=== PATIENT | male | born 1985 | race Caucasian/White ===

== ENCOUNTER 2024-01-04 17:54 | Inpatient (IN) | payer SELFPAY ==
[~2024-01-04] VITALS: Ht 185.4 cm; Wt 104.3 kg
[2024-01-04] MEDS ORDERED: METH-817 PO (18:08)
[2024-01-04 18:31] LABS: DIFFERENTIAL COMMENT 0; HEMOGLOBIN 16.3 g/dL (12.5-16.3); MEAN CORPUSCULAR VOLUME 93.9 fL (73.0-96.2)
[2024-01-04] MEDS ORDERED: IOHEXOL 350 100 ML INFUS..BTL ONE (18:31)
[2024-01-04] MEDS ORDERED: IV NORMAL SALINE 250 ML IV ONE (18:31)
[2024-01-04] MEDS ORDERED: SWABABLE VALVE TRANSFER SET EA MC ONE (18:31)
[2024-01-04 18:35] LABS: BASOPHILS # (AUTO) 0.4 K/UL (0.0-0.2); EOSINOPHILS # (AUTO) 0.2 K/uL (0.0-0.7); HEMATOCRIT 48.8 % (36.7-47.1); LYMPHOCYTES # (AUTO) 2.3 K/uL (0.8-4.8); LYMPHOCYTES % (AUTO) 24.9 % (20.5-51.5); MEAN CORPUSCULAR HEMOGLOBIN 31.4 uug (23.8-33.4); MEAN CORPUSCULAR HGB CONC 34 g/dL (32.5-36.3); MONOCYTES # (AUTO) 0.5 K/uL (0.1-1.30); MONOCYTES % (AUTO) 5.3 % (0.0-11.0); NEUTROPHILS # (AUTO) 5.8 K/uL (1.8-8.9); NEUTROPHILS % (AUTO) 63.8 % (38.5-71.5); PLATELET COUNT (AUTO) 126 K/uL (152-348); WHITE BLOOD COUNT (AUTO) 9.1 K/uL (3.6-10.2)
[2024-01-04 18:45] LABS: CALCIUM 8.7 mg/dL (8.5-10.1); CARBON DIOXIDE 32 mmol/L (21-32); CHLORIDE 100 mmol/L (98-107); CREATININE 0.6 mg/dL (0.6-1.3); GLUCOSE 136 mg/dL (74-106); POTASSIUM 3.7 mmol/L (3.5-5.1); SODIUM SERUM 140 mmol/L (136-145); UREA NITROGEN, BLOOD 13 mg/dL (7-18)
[2024-01-04 18:46] LABS: ABG BASE EXCESS 3.4 mmol/L (-2.0-3.0); ABG HCO3 28.5 mmol/L (21.0-28.0); ABG PCO2 44.9 mmHg (35.0-48.0); ABG PH 7.421 (7.350-7.450); ABG PO2 75.2 mmHg (83.0-108.0); ABG SITE LEFT RADIAL; ABG TOTAL HEMOGLOBIN 16.4 G/dL (13.5-17.5); AaDO2 95.3 mmHg; COHb 1.5 % (0.5-1.5); MetHb 0.3 % (0.0-1.5); O2Hb 93.4 % (94.0-98.0)
[2024-01-04 18:58] LABS: NT-PRO BNP 52 pg/mL (0-125)
[2024-01-04 21:13] LABS: BILIRUBIN,DIRECT 0.4 mg/dL (0.0-0.2); BILIRUBIN,TOTAL 0.9 mg/dL (0.2-1.0)
[2024-01-04 21:58] LABS: *AMPHETAMINE, URINE NEGATIVE (NEGATIVE); *BARBITURATE, URINE NEGATIVE (NEGATIVE); *BENZODIAZEPINE, URINE NEGATIVE (NEGATIVE); *CANNABINOID, URINE NEGATIVE (NEGATIVE); *COCCAINE, URINE NEGATIVE (NEGATIVE); *OPIATE, URINE NEGATIVE (NEGATIVE); *PHENCYCLIDINE SCREEN,URINE NEGATIVE (NEGATIVE); FENTANYL, URINE NEGATIVE (NEGATIVE)
[2024-01-04] MEDS ORDERED: ACETAMINOPHEN 325 MG TABLET PO PRN (22:15)
[2024-01-04] MEDS ORDERED: REMEDY ESSENTIAL ZINC PASTE 113 GM TP PRN (22:15)
[2024-01-04] MEDS ORDERED: MAGNESIUM HYDROXIDE 30 ML LIQUID UDC PO PRN (22:15)
[2024-01-04] MEDS: LORAZEPAM 2 MG/1 ML VIAL IV PRN (22:51)
[2024-01-04 23:05] VITALS: BP 151/95; TEMP 98.2; O2SAT 94
[2024-01-05] MEDS: IV NS 1000 ML 1,000 ML IV PRN (00:31)
[2024-01-05 04:54] VITALS: BP 151/92; TEMP 98.1; O2SAT 92
[2024-01-05] MEDS ORDERED: ONDANSETRON 4 MG/2 ML VIAL IV PRN (05:15)
[2024-01-05] MEDS: ONDANSETRON 4 MG/2 ML VIAL IV PRN (05:18)
[2024-01-05 06:18] LABS: BASOPHILS % (AUTO) 0.5 % (0.0-2.0); EOSINOPHILS # (AUTO) 0.1 K/uL (0.0-0.7); EOSINOPHILS % (AUTO) 1.2 % (0.0-7.0); HEMATOCRIT 45.8 % (36.7-47.1); HEMOGLOBIN 15.2 g/dL (12.5-16.3); LYMPHOCYTES # (AUTO) 2.3 K/uL (0.8-4.8); LYMPHOCYTES % (AUTO) 35.8 % (20.5-51.5); MEAN CORPUSCULAR HEMOGLOBIN 31.2 uug (23.8-33.4); MEAN CORPUSCULAR HGB CONC 33 g/dL (32.5-36.3); MONOCYTES # (AUTO) 0.6 K/uL (0.1-1.30); MONOCYTES % (AUTO) 9.5 % (0.0-11.0); NEUTROPHILS # (AUTO) 3.4 K/uL (1.8-8.9); PLATELET COUNT (AUTO) 84 K/uL (152-348); RED BLOOD CELL COUNT(AUTO) 4.87 MIL/uL (4.06-5.63); RED CELL DISTRIBUTION WIDTH 14.2 % (12.1-16.2); WHITE BLOOD COUNT (AUTO) 6.3 K/uL (3.6-10.2)
[2024-01-05] MEDS: PANTOPRAZOLE SODIUM 40 MG TABLET.DR PO SCH (06:19)
[2024-01-05 06:45] LABS: CREATININE 0.7 mg/dL (0.6-1.3); MAGNESIUM 1.2 mg/dL (1.8-2.4); PHOSPHOROUS 4.3 mg/dL (2.5-4.9); POTASSIUM 3.7 mmol/L (3.5-5.1)
[2024-01-05 06:57] LABS: DIFFERENTIAL COMMENT 1
[2024-01-05 08:00] VITALS: BP 156/94; TEMP 98.6; O2SAT 96
[2024-01-05 08:44] LABS: EOSINOPHILS % (MANUAL) 1 % (0-8); LYMPHOCYTES % (MANUAL) 36 % (20-40); MONOCYTES % (MANUAL) 10 % (2-10); NEUTROPHILS % (MANUAL) 53 % (42-75); PLATELET ESTIMATE DECREASED
[2024-01-05] MEDS: LORAZEPAM 2 MG/1 ML VIAL IV ONE (10:24)
[2024-01-05] MEDS: MAGNESIUM OXIDE 400 MG TABLET PO SCH (11:08)
[2024-01-05 12:00] VITALS: BP 164/89; TEMP 98.4; O2SAT 95
[2024-01-05] MEDS: CHLORDIAZEPOXIDE HCL 25 MG CAPSULE PO SCH (12:31)
[2024-01-05] MEDS: METHADONE ORAL CONCENTRATE SOL 10 MG/ML ORAL.CONC PO SCH (13:30)
[2024-01-05 17:53] VITALS: O2SAT 96
[2024-01-05] MEDS: LORAZEPAM 2 MG/1 ML VIAL IM PRN (18:30)
[2024-01-05 20:11] VITALS: O2SAT 96
[2024-01-05 20:14] VITALS: BP 153/94; TEMP 98.2; O2SAT 97
[2024-01-06] VITALS (8 sets, daily range): BP systolic 131–170; BP diastolic 92–116; TEMP 98.1–98.8; O2SAT 93–96
[2024-01-06 06:58] LABS: BASOPHILS % (AUTO) 0.5 % (0.0-2.0); EOSINOPHILS # (AUTO) 0.1 K/uL (0.0-0.7); EOSINOPHILS % (AUTO) 1.9 % (0.0-7.0); HEMATOCRIT 42.7 % (36.7-47.1); HEMOGLOBIN 14.4 g/dL (12.5-16.3); LYMPHOCYTES # (AUTO) 1.1 K/uL (0.8-4.8); LYMPHOCYTES % (AUTO) 26.6 % (20.5-51.5); MEAN CORPUSCULAR HEMOGLOBIN 31.4 uug (23.8-33.4); MEAN CORPUSCULAR HGB CONC 34 g/dL (32.5-36.3); MEAN CORPUSCULAR VOLUME 93.1 fL (73.0-96.2); MONOCYTES # (AUTO) 0.4 K/uL (0.1-1.30); MONOCYTES % (AUTO) 9.2 % (0.0-11.0); NEUTROPHILS # (AUTO) 2.6 K/uL (1.8-8.9); NEUTROPHILS % (AUTO) 61.8 % (38.5-71.5); PLATELET COUNT (AUTO) 50 K/uL (152-348); RED BLOOD CELL COUNT(AUTO) 4.59 MIL/uL (4.06-5.63); RED CELL DISTRIBUTION WIDTH 13.8 % (12.1-16.2); WHITE BLOOD COUNT (AUTO) 4.2 K/uL (3.6-10.2)
[2024-01-06 07:13] LABS: DIFFERENTIAL COMMENT 1
[2024-01-06 07:40] LABS: CALCIUM 8.4 mg/dL (8.5-10.1); CARBON DIOXIDE 32 mmol/L (21-32); CHLORIDE 100 mmol/L (98-107); CREATININE 0.6 mg/dL (0.6-1.3); GLUCOSE 76 mg/dL (74-106); MAGNESIUM 1.8 mg/dL (1.8-2.4); PHOSPHOROUS 2.8 mg/dL (2.5-4.9); POTASSIUM 3.4 mmol/L (3.5-5.1); SODIUM SERUM 137 mmol/L (136-145); UREA NITROGEN, BLOOD 11 mg/dL (7-18)
[2024-01-06 10:38] LABS: EOSINOPHILS % (MANUAL) 2 % (0-8); LYMPHOCYTES % (MANUAL) 27 % (20-40); MONOCYTES % (MANUAL) 9 % (2-10); NEUTROPHILS % (MANUAL) 62 % (42-75); PLATELET ESTIMATE DECREASED
[2024-01-06] MEDS: POTASSIUM CHLORIDE 20 MEQ TAB.PRT.SR PO ONE (12:58)
[2024-01-06] MEDS: LORAZEPAM 2 MG/1 ML VIAL IV ONE (16:08)
[2024-01-06] MEDS: ZOLPIDEM 5 MG TABLET PO PRN (22:45)
[2024-01-07] VITALS: BP 162/105; TEMP 98.4; O2SAT 95
[2024-01-07 04:00] VITALS: BP 177/113; TEMP 98.1; O2SAT 94
[2024-01-07 07:23] LABS: BASOPHILS % (AUTO) 0.4 % (0.0-2.0); CALCIUM 8.5 mg/dL (8.5-10.1); CREATININE 0.7 mg/dL (0.6-1.3); EOSINOPHILS # (AUTO) 0.1 K/uL (0.0-0.7); HEMATOCRIT 40.9 % (36.7-47.1); HEMOGLOBIN 14.1 g/dL (12.5-16.3); LYMPHOCYTES # (AUTO) 1.1 K/uL (0.8-4.8); LYMPHOCYTES % (AUTO) 24.2 % (20.5-51.5); MAGNESIUM 1.8 mg/dL (1.8-2.4); MEAN CORPUSCULAR HEMOGLOBIN 31.9 uug (23.8-33.4); MEAN CORPUSCULAR HGB CONC 34 g/dL (32.5-36.3); MEAN CORPUSCULAR VOLUME 92.6 fL (73.0-96.2); MONOCYTES # (AUTO) 0.3 K/uL (0.1-1.30); MONOCYTES % (AUTO) 7.7 % (0.0-11.0); NEUTROPHILS % (AUTO) 64.7 % (38.5-71.5); PLATELET COUNT (AUTO) 50 K/uL (152-348); POTASSIUM 3.7 mmol/L (3.5-5.1); RED BLOOD CELL COUNT(AUTO) 4.42 MIL/uL (4.06-5.63); RED CELL DISTRIBUTION WIDTH 13.3 % (12.1-16.2); WHITE BLOOD COUNT (AUTO) 4.6 K/uL (3.6-10.2)
[2024-01-07 07:24] LABS: DIFFERENTIAL COMMENT 1
[2024-01-07 08:00] VITALS: BP 161/109; TEMP 98.6; O2SAT 98
[2024-01-07] MEDS ORDERED: METO25TA6 PO (09:05)
[2024-01-07] MEDS ORDERED: hydrALAZINE HCL 25 MG TABLET PO PRN (09:15)
[2024-01-07 09:35] VITALS: O2SAT 96
[2024-01-07] MEDS: METOPROLOL TARTRATE 25 MG TABLET PO SCH (09:53)
[2024-01-07] MEDS: CHLORDIAZEPOXIDE HCL 25 MG CAPSULE PO SCH (13:34)
[2024-01-07 14:31] LABS: BAND % (MANUAL) 3 % (0-10); EOSINOPHILS % (MANUAL) 3 % (0-8); LYMPHOCYTES % (MANUAL) 24 % (20-40); MONOCYTES % (MANUAL) 7 % (2-10); NEUTROPHILS % (MANUAL) 63 % (42-75); PLATELET ESTIMATE DECREASED
[2024-01-07] MEDS ORDERED: METHADONE HCL 10 MG TABLET PO SCH (17:00)
[2024-01-07 20:00] VITALS: BP 154/100; TEMP 98.4; O2SAT 98
[2024-01-08 04:09] VITALS: BP 133/99; TEMP 98.3; O2SAT 95
[2024-01-08 04:31] VITALS: O2SAT 95
[2024-01-08 07:41] LABS: BASOPHILS % (AUTO) 0.4 % (0.0-2.0); EOSINOPHILS # (AUTO) 0.2 K/uL (0.0-0.7); EOSINOPHILS % (AUTO) 4.5 % (0.0-7.0); HEMOGLOBIN 13.8 g/dL (12.5-16.3); LYMPHOCYTES # (AUTO) 1.1 K/uL (0.8-4.8); LYMPHOCYTES % (AUTO) 20.8 % (20.5-51.5); MEAN CORPUSCULAR HEMOGLOBIN 32.3 uug (23.8-33.4); MEAN CORPUSCULAR HGB CONC 34 g/dL (32.5-36.3); MEAN CORPUSCULAR VOLUME 93.9 fL (73.0-96.2); MONOCYTES # (AUTO) 0.6 K/uL (0.1-1.30); MONOCYTES % (AUTO) 10.8 % (0.0-11.0); NEUTROPHILS # (AUTO) 3.3 K/uL (1.8-8.9); NEUTROPHILS % (AUTO) 63.5 % (38.5-71.5); RED BLOOD CELL COUNT(AUTO) 4.26 MIL/uL (4.06-5.63); RED CELL DISTRIBUTION WIDTH 14.1 % (12.1-16.2); WHITE BLOOD COUNT (AUTO) 5.2 K/uL (3.6-10.2)
[2024-01-08 07:43] LABS: DIFFERENTIAL COMMENT 1
[2024-01-08 08:06] LABS: CALCIUM 8.9 mg/dL (8.5-10.1); CREATININE 0.7 mg/dL (0.6-1.3); MAGNESIUM 1.5 mg/dL (1.8-2.4); PHOSPHOROUS 3.3 mg/dL (2.5-4.9); POTASSIUM 3.6 mmol/L (3.5-5.1)
[2024-01-08 09:01] LABS: EOSINOPHILS % (MANUAL) 5 % (0-8); LYMPHOCYTES % (MANUAL) 21 % (20-40); MONOCYTES % (MANUAL) 10 % (2-10); NEUTROPHILS % (MANUAL) 64 % (42-75); PLATELET COUNT (AUTO) 51 K/uL (152-348)
[2024-01-08] MEDS: MAGNESIUM OXIDE 400 MG TABLET PO ONE (11:06)
[2024-01-08 11:59] VITALS: BP 147/93; TEMP 97.8; O2SAT 97
[2024-01-08 16:00] VITALS: BP 139/100; TEMP 97; O2SAT 97
[2024-01-08 16:12] VITALS: O2SAT 96
[2024-01-08 20:46] VITALS: BP 141/99; TEMP 97.8; O2SAT 92
[2024-01-09 04:52] VITALS: O2SAT 95
[2024-01-09 06:10] VITALS: BP 140/91; TEMP 97.8; O2SAT 93
[2024-01-09 07:15] LABS: CREATININE 0.8 mg/dL (0.6-1.3); MAGNESIUM 1.9 mg/dL (1.8-2.4); POTASSIUM 3.8 mmol/L (3.5-5.1)
[2024-01-09 11:36] VITALS: BP 146/90; TEMP 98; O2SAT 95
[2024-01-09 14:40] VITALS: O2SAT 96
[2024-01-09 17:05] VITALS: O2SAT 96
== END 2024-01-09 15:05 | disposition home or self-care (01) | DRG 189 ==
LOC: ER 17:58 → TELE3 22:06 → MEDSURG3 01-07 10:05
PROVIDERS: ADMIT Student in an Organized Health Care Education/Training Program; ATTEND Student in an Organized Health Care Education/Training Program
DX: J96.01 Acute respiratory failure with hypoxia (principal); K76.6 Portal hypertension; I85.10 Secondary esophageal varices without bleeding; F10.239 Alcohol dependence with withdrawal, unspecified; K70.30 Alcoholic cirrhosis of liver without ascites; I86.4 Gastric varices; F10.229 Alcohol dependence with intoxication, unspecified; E87.6 Hypokalemia; E83.42 Hypomagnesemia; D69.6 Thrombocytopenia, unspecified; I10 Essential (primary) hypertension
CPT/HCPCS: 36415; 36600; 70030-TC; 71045; 71275; 82803; 83605; 83735; 84100; 84443; 85025; 87040; A4606; A4663; G0378; G0480; J2060; J2405; J7040; Q9967

== ENCOUNTER 2024-08-18 18:30 | Inpatient (IN) | payer MEDICAID ==
[~2024-08-18] VITALS: Ht 185.4 cm; Wt 120.2 kg
[~2024-08-18 18:30] MED LIST: METH-817 PO; METO25TA6 PO
[2024-08-18 19:14] LABS: BASOPHILS # (AUTO) 0.1 K/UL (0.0-0.2); BASOPHILS % (AUTO) 0.7 % (0.0-2.0); EOSINOPHILS % (AUTO) 0.5 % (0.0-7.0); HEMOGLOBIN 14.9 g/dL (12.5-16.3); LYMPHOCYTES # (AUTO) 2.3 K/uL (0.8-4.8); LYMPHOCYTES % (AUTO) 30.2 % (20.5-51.5); MEAN CORPUSCULAR HEMOGLOBIN 31.4 uug (23.8-33.4); MEAN CORPUSCULAR HGB CONC 35 g/dL (32.5-36.3); MEAN CORPUSCULAR VOLUME 90.4 fL (73.0-96.2); MONOCYTES # (AUTO) 0.8 K/uL (0.1-1.30); MONOCYTES % (AUTO) 9.8 % (0.0-11.0); NEUTROPHILS # (AUTO) 4.5 K/uL (1.8-8.9); NEUTROPHILS % (AUTO) 58.8 % (38.5-71.5); PLATELET COUNT (AUTO) 93 K/uL (152-348); RED BLOOD CELL COUNT(AUTO) 4.76 MIL/uL (4.06-5.63); RED CELL DISTRIBUTION WIDTH 14.4 % (12.1-16.2); WHITE BLOOD COUNT (AUTO) 7.7 K/uL (3.6-10.2)
[2024-08-18] MEDS: IV NS 1000 ML 1,000 ML IV ONE ×2 (19:18)
[2024-08-18] MEDS ORDERED: ONDANSETRON 4 MG/2 ML VIAL ONE (19:19)
[2024-08-18] MEDS ORDERED: PANTOPRAZOLE SODIUM 40 MG VIAL ONE (19:20)
[2024-08-18 19:22] LABS: CALCIUM 8.4 mg/dL (8.5-10.1); CREATININE 0.7 mg/dL (0.6-1.3); POTASSIUM 3.3 mmol/L (3.5-5.1)
[2024-08-18] MEDS: ONDANSETRON 4 MG/2 ML VIAL IV ONE (19:23)
[2024-08-18] MEDS: PANTOPRAZOLE SODIUM 40 MG VIAL IV ONE (19:23)
[2024-08-18 19:34] LABS: ALBUMIN 3.4 g/dL (3.4-5.0); BILIRUBIN,TOTAL 1.2 mg/dL (0.2-1.0); MAGNESIUM 1.7 mg/dL (1.8-2.4); TOTAL PROTEIN, SERUM 8.2 g/dL (6.4-8.2)
[2024-08-18] MEDS ORDERED: MAGNESIUM SULFATE/D5W 100 ML ONE (20:05)
[2024-08-18] MEDS ORDERED: POTASSIUM CHLORIDE 50 ML ONE (20:05)
[2024-08-18] MEDS: POTASSIUM CHLORIDE 50 ML IV SCH (20:15)
[2024-08-18 20:42] LABS: ANISOCYTOSIS 1+; BAND % (MANUAL) 1 % (0-10); EOSINOPHILS % (MANUAL) 1 % (0-8); LYMPHOCYTES % (MANUAL) 27 % (20-40); MONOCYTES % (MANUAL) 9 % (2-10); NEUTROPHILS % (MANUAL) 62 % (42-75); PLATELET ESTIMATE DECREASED
[2024-08-18] MEDS: MAGNESIUM SULFATE/D5W 100 ML IV SCH (21:04)
[2024-08-18] MEDS ORDERED: LORAZEPAM 2 MG/1 ML VIAL ONE (22:28)
[2024-08-18] MEDS: LORAZEPAM 2 MG/1 ML VIAL IV ONE (22:29)
[2024-08-18 22:38] LABS: ABG BASE EXCESS -0.2 mmol/L (-2.0-3.0); ABG HCO3 26.4 mmol/L (21.0-28.0); ABG PCO2 50.9 mmHg (35.0-48.0); ABG PH 7.333 (7.350-7.450); ABG PO2 82.5 mmHg (83.0-108.0); ABG SITE RIGHT RADIAL; ABG TOTAL HEMOGLOBIN 14.2 G/dL (13.5-17.5); AaDO2 95.3 mmHg; COHb 0.8 % (0.5-1.5); MetHb 0.4 % (0.0-1.5); O2Hb 94.3 % (94.0-98.0)
[2024-08-18 23:31] LABS: ABG BASE EXCESS -0.7 mmol/L (-2.0-3.0); ABG PCO2 50.6 mmHg (35.0-48.0); ABG PH 7.328 (7.350-7.450); ABG PO2 55.8 mmHg (83.0-108.0); ABG SITE LEFT RADIAL; ABG TOTAL HEMOGLOBIN 14.4 G/dL (13.5-17.5); AaDO2 86.6 mmHg; MetHb 0.5 % (0.0-1.5); O2Hb 85.6 % (94.0-98.0)
[2024-08-18] MEDS ORDERED: IOHEXOL 350 100 ML INFUS..BTL ONE (23:35)
[2024-08-18] MEDS ORDERED: IV NORMAL SALINE 250 ML IV ONE (23:35)
[2024-08-18] MEDS ORDERED: SWABABLE VALVE TRANSFER SET EA MC ONE (23:35)
[2024-08-19] VITALS (7 sets, daily range): BP systolic 132–155; BP diastolic 92–102; TEMP 97.5–98.7; O2SAT 91–100
[2024-08-19] MEDS ORDERED: REMEDY ESSENTIAL ZINC PASTE 113 GM TP PRN (03:30)
[2024-08-19] MEDS: LORAZEPAM 2 MG/1 ML VIAL IV PRN ×2 (04:33→10:32)
[2024-08-19] MEDS: CHLORDIAZEPOXIDE HCL 25 MG CAPSULE PO SCH ×2 (08:06→13:46)
[2024-08-19] MEDS ORDERED: CHLORDIAZEPOXIDE HCL 25 MG CAPSULE PO SCH ×2 (09:45→13:00)
[2024-08-19] MEDS: [UNRECOGNIZED DRUG - OTHER] PO SCH (12:00)
[2024-08-19] MEDS: METHADONE PO SCH (12:00)
[2024-08-20] VITALS (7 sets, daily range): BP systolic 134–152; BP diastolic 86–99; TEMP 98.2–98.7; O2SAT 90–96
[2024-08-20 07:07] LABS: BASOPHILS % (AUTO) 0.4 % (0.0-2.0); EOSINOPHILS # (AUTO) 0.1 K/uL (0.0-0.7); EOSINOPHILS % (AUTO) 2.9 % (0.0-7.0); HEMATOCRIT 39.3 % (36.7-47.1); HEMOGLOBIN 13.9 g/dL (12.5-16.3); LYMPHOCYTES # (AUTO) 1.6 K/uL (0.8-4.8); LYMPHOCYTES % (AUTO) 31.3 % (20.5-51.5); MEAN CORPUSCULAR HEMOGLOBIN 31.8 uug (23.8-33.4); MEAN CORPUSCULAR HGB CONC 35 g/dL (32.5-36.3); MEAN CORPUSCULAR VOLUME 90.1 fL (73.0-96.2); MONOCYTES # (AUTO) 0.5 K/uL (0.1-1.30); MONOCYTES % (AUTO) 8.9 % (0.0-11.0); NEUTROPHILS # (AUTO) 2.9 K/uL (1.8-8.9); NEUTROPHILS % (AUTO) 56.5 % (38.5-71.5); PLATELET COUNT (AUTO) 55 K/uL (152-348); RED BLOOD CELL COUNT(AUTO) 4.36 MIL/uL (4.06-5.63); RED CELL DISTRIBUTION WIDTH 13.9 % (12.1-16.2); WHITE BLOOD COUNT (AUTO) 5.2 K/uL (3.6-10.2)
[2024-08-20 07:09] LABS: CALCIUM 8.3 mg/dL (8.5-10.1); CREATININE 0.7 mg/dL (0.6-1.3); MAGNESIUM 1.6 mg/dL (1.8-2.4); PHOSPHOROUS 2.8 mg/dL (2.5-4.9); POTASSIUM 3.6 mmol/L (3.5-5.1)
[2024-08-20] MEDS: MAGNESIUM OXIDE 400 MG TABLET PO ONE (09:56)
[2024-08-20] MEDS: CHLORDIAZEPOXIDE HCL 25 MG CAPSULE PO SCH (14:27)
[2024-08-21] VITALS (8 sets, daily range): BP systolic 128–142; BP diastolic 84–97; TEMP 97.6–98.8; O2SAT 90–99
[2024-08-21] MEDS: ACETAMINOPHEN 325 MG TABLET PO PRN (09:44)
[2024-08-21] MEDS: LACTULOSE 20 G/30 ML LIQUID UDC PO SCH (10:28)
[2024-08-21] MEDS: CHLORDIAZEPOXIDE HCL 25 MG CAPSULE PO SCH (12:57)
[2024-08-21] MEDS: MAGNESIUM HYDROXIDE 30 ML LIQUID UDC PO PRN (20:23)
[2024-08-21] MEDS: ZOLPIDEM 5 MG TABLET PO PRN (23:08)
[2024-08-22] VITALS (8 sets, daily range): BP systolic 126–156; BP diastolic 73–94; TEMP 97.6–98.5; O2SAT 91–94
[2024-08-22 06:43] LABS: BASOPHILS % (AUTO) 0.4 % (0.0-2.0); EOSINOPHILS # (AUTO) 0.2 K/uL (0.0-0.7); EOSINOPHILS % (AUTO) 2.9 % (0.0-7.0); HEMATOCRIT 43.1 % (36.7-47.1); HEMOGLOBIN 14.6 g/dL (12.5-16.3); LYMPHOCYTES # (AUTO) 2.2 K/uL (0.8-4.8); LYMPHOCYTES % (AUTO) 29.4 % (20.5-51.5); MEAN CORPUSCULAR HEMOGLOBIN 31.3 uug (23.8-33.4); MEAN CORPUSCULAR HGB CONC 34 g/dL (32.5-36.3); MEAN CORPUSCULAR VOLUME 92.7 fL (73.0-96.2); MONOCYTES # (AUTO) 0.7 K/uL (0.1-1.30); MONOCYTES % (AUTO) 9.2 % (0.0-11.0); NEUTROPHILS # (AUTO) 4.4 K/uL (1.8-8.9); NEUTROPHILS % (AUTO) 58.1 % (38.5-71.5); PLATELET COUNT (AUTO) 80 K/uL (152-348); RED BLOOD CELL COUNT(AUTO) 4.65 MIL/uL (4.06-5.63); RED CELL DISTRIBUTION WIDTH 14.9 % (12.1-16.2); WHITE BLOOD COUNT (AUTO) 7.6 K/uL (3.6-10.2)
[2024-08-22 06:44] LABS: CALCIUM 9.1 mg/dL (8.5-10.1); CREATININE 0.7 mg/dL (0.6-1.3); PHOSPHOROUS 3.9 mg/dL (2.5-4.9); POTASSIUM 4.3 mmol/L (3.5-5.1)
[2024-08-22 06:50] LABS: DIFFERENTIAL COMMENT 1
[2024-08-22] MEDS: METHADONE ORAL CONCENTRATE SOL 10 MG/ML ORAL.CONC PO SCH (09:12)
[2024-08-22] MEDS: THIAMINE HCL 100 MG TABLET PO SCH (15:30)
[2024-08-22] MEDS: FOLIC ACID 1 MG TABLET PO SCH (15:30)
[2024-08-22] MEDS: LORAZEPAM 2 MG/1 ML VIAL IV PRN (15:38)
[2024-08-22] MEDS ORDERED: CHLORDIAZEPOXIDE HCL 25 MG CAPSULE PO SCH (17:00)
[2024-08-22] MEDS ORDERED: LEVALBUTEROL HCL NEB 0.63 MG/3 ML NEBU NEB PRN (20:30)
[2024-08-22] MEDS ORDERED: ALBUTEROL SULFATE 2.5 MG/3 ML NEBU NEB PRN (21:00)
[2024-08-23 05:48] LABS: ABG BASE EXCESS 1.2 mmol/L (-2.0-3.0); ABG HCO3 27.1 mmol/L (21.0-28.0); ABG PCO2 47.9 mmHg (35.0-48.0); ABG PH 7.371 (7.350-7.450); ABG PO2 53.2 mmHg (83.0-108.0); ABG SITE LEFT RADIAL; ABG TOTAL HEMOGLOBIN 14.1 G/dL (13.5-17.5); AaDO2 86.4 mmHg; COHb 1.1 % (0.5-1.5); MetHb 0.3 % (0.0-1.5); O2Hb 86.8 % (94.0-98.0)
[2024-08-23 06:02] VITALS: BP 136/84; TEMP 98; O2SAT 92
[2024-08-23 06:55] LABS: BASOPHILS % (AUTO) 0.3 % (0.0-2.0); EOSINOPHILS # (AUTO) 0.2 K/uL (0.0-0.7); EOSINOPHILS % (AUTO) 2.9 % (0.0-7.0); HEMATOCRIT 39.7 % (36.7-47.1); HEMOGLOBIN 13.6 g/dL (12.5-16.3); LYMPHOCYTES # (AUTO) 1.7 K/uL (0.8-4.8); LYMPHOCYTES % (AUTO) 23.1 % (20.5-51.5); MEAN CORPUSCULAR HEMOGLOBIN 31.6 uug (23.8-33.4); MEAN CORPUSCULAR HGB CONC 34 g/dL (32.5-36.3); MEAN CORPUSCULAR VOLUME 92.1 fL (73.0-96.2); MONOCYTES # (AUTO) 0.9 K/uL (0.1-1.30); MONOCYTES % (AUTO) 11.4 % (0.0-11.0); NEUTROPHILS # (AUTO) 4.7 K/uL (1.8-8.9); NEUTROPHILS % (AUTO) 62.3 % (38.5-71.5); PLATELET COUNT (AUTO) 73 K/uL (152-348); RED BLOOD CELL COUNT(AUTO) 4.31 MIL/uL (4.06-5.63); RED CELL DISTRIBUTION WIDTH 14.8 % (12.1-16.2); WHITE BLOOD COUNT (AUTO) 7.5 K/uL (3.6-10.2)
[2024-08-23 07:08] LABS: DIFFERENTIAL COMMENT 1
[2024-08-23 07:37] VITALS: BP 119/87; TEMP 98.4; O2SAT 96
[2024-08-23 07:41] LABS: ALBUMIN 3.1 g/dL (3.4-5.0); CALCIUM 8.6 mg/dL (8.5-10.1); CREATININE 0.7 mg/dL (0.6-1.3); PHOSPHOROUS 3.6 mg/dL (2.5-4.9); POTASSIUM 3.7 mmol/L (3.5-5.1); TOTAL PROTEIN, SERUM 7.4 g/dL (6.4-8.2)
[2024-08-23] MEDS: MULTIVITAMINS,THERAPEUTIC TABLET PO SCH (08:22)
[2024-08-23 09:04] LABS: THYROID STIMULATING HORMONE 3.213 mIU/mL (0.358-3.740)
[2024-08-23 11:03] VITALS: BP 113/77; TEMP 98.4; O2SAT 96
[2024-08-23] MEDS: ONDANSETRON 4 MG/2 ML VIAL IV PRN (13:30)
[2024-08-23 15:07] VITALS: BP 150/46; TEMP 97.6; O2SAT 92
[2024-08-23 15:09] VITALS: BP 140/84; TEMP 97.6; O2SAT 94
[2024-08-23 19:00] VITALS: BP 126/84; TEMP 98.1; O2SAT 97
[2024-08-24] VITALS: BP 139/93; TEMP 97.8; O2SAT 94
[2024-08-24 04:00] VITALS: BP 133/81; TEMP 98; O2SAT 94
[2024-08-24 08:01] VITALS: BP 118/82; TEMP 98.3; O2SAT 94
[2024-08-24 11:55] VITALS: BP 133/89; TEMP 97.8; O2SAT 95
[2024-08-24 15:33] VITALS: BP 129/86; TEMP 97.7; O2SAT 94
[2024-08-24 19:35] VITALS: BP 129/86; TEMP 97.3; O2SAT 91
[2024-08-25] MEDS ORDERED: LORAZEPAM 2 MG/1 ML VIAL IV PRN (05:45)
[2024-08-25 05:51] VITALS: BP 113/80; TEMP 97.6; O2SAT 91
[2024-08-25] MEDS: LORAZEPAM 1 MG TABLET PO PRN (09:02)
[2024-08-25 12:00] VITALS: BP 123/93; TEMP 97.8; O2SAT 95
[2024-08-25] MEDS ORDERED: MULT-24 PO (12:10)
[2024-08-25] MEDS ORDERED: THIA100T13 PO (12:10)
[2024-08-25] MEDS ORDERED: FOLI1TAB94 PO (12:10)
[2024-08-25] MEDS ORDERED: LORA-259 PO (12:10)
== END 2024-08-25 12:45 | disposition left against medical advice (07) | DRG 816 ==
LOC: ER 18:30 → TELE3 08-19 02:55 → MEDSURG3 08-24 10:06
PROVIDERS: ADMIT Student in an Organized Health Care Education/Training Program; ATTEND Internal Medicine
DX: T51.0X1A Toxic effect of ethanol, accidental (unintentional), initial encounter (principal); J96.01 Acute respiratory failure with hypoxia; F10.231 Alcohol dependence with withdrawal delirium; G92.8 Other toxic encephalopathy; I85.10 Secondary esophageal varices without bleeding; J96.02 Acute respiratory failure with hypercapnia; D69.59 Other secondary thrombocytopenia; K70.0 Alcoholic fatty liver; Y90.6 Blood alcohol level of 120-199 mg/100 ml; E87.6 Hypokalemia; I10 Essential (primary) hypertension; Z53.29 Procedure and treatment not carried out because of patient's decision for other reasons; I45.10 Unspecified right bundle-branch block; F11.90 Opioid use, unspecified, uncomplicated; F41.9 Anxiety disorder, unspecified; E83.42 Hypomagnesemia; E66.9 Obesity, unspecified; Z68.35 Body mass index [BMI] 35.0-35.9, adult; J38.7 Other diseases of larynx
CPT/HCPCS: 36415; 36600; 71045; 71275; 82803; 83690; 83735; 84100; 84443; 84484; 85025; 86803; A4606; A4663; G0378; G0480; J2060; J2405; J2470; J3475; J3480; J7040; Q9967